=== PATIENT | male | born 1955 | race Caucasian/White ===

== ENCOUNTER 2019-04-01 13:00 | Outpatient (RCR) | payer MEDICARE, BC, SELFPAY ==
--- NOTE | 2019-03-04 12:31 | HP.PTEVAL_ITS ---
Patient's Visit Information JOSE YOUNG is a 63 year old M referred to Physical Therapy by Ken Serra MD with a diagnosis of l compete rct tear L bicep tear. Date of Evaluation: 03/04/19 Physical Therapist: Cecilio Chaparro, PT, ANGEL, SCS, CSCS - Visit Plan Frequency: 1-2x /Week Duration: 6 Weeks Plan: 1-2 week deopending on progress - Subjective Findings: I had surgery on 02.20.19 at [facility] with Dr Serra. I initially injured my arm 25 years ago but recently tripped over a sump pump and fell on my armstretched arm - Pain Left Shoulder Pain Intensity (Out of 10): 4 Pain Intensity Range: 0, 4 Comment: 0 at rest higher with activities - Objective Mr Young is a pleasant 63 yo who was referred to my care with a diagnosis of left rcr on 02.20.19 and left bicep tenodesis. incision site is healing well no seepage or drainage. This right hand individual displayed a grounding engineer strength on 85 right 70 left. Denies any numbness or tingling. PROM restricted to 15 ext ad 70 flexion. - Goals Goal 1:: Understand the healing process Goal Time Frame: 1 Week Goal 2:: Progress from phase 1 to 2 then transfer to therapist n [place] Goal Time Frame: 4-6 Weeks - Rehabilitation Potential Physical Therapy Diagnosis: Same Rehabilitation Potential: Good - Anticipated Interventions Patient/Client Instruction: Educate patient on: Condition, Plan of Care, Risk Factors For the Purpose of:: To decrease pain, To decrease swelling/inflammation, To increase ROM Manual Therapy Techniques to Include: Mobilization, Passive ROM For the Purpose of:: To decrease pain, To decrease swelling/inflammation, To increase ROM Thank you for the opportunity to evaluate your patient. For Medicare and Medicare HMO plans, please review the plan of care and approve it. It will need to be FAXED BACK to us at [phone] for Medicare purposes. For Medicare only, by signing this I certify the plan of care. Please let me know if there are questions or concerns regarding this plan of care. Physician Signature: Date:
--- NOTE | 2019-04-01 14:02 | HP.PTDCSUM ---
HP - PT D/C Summary It has been my pleasure to treat JOSE WILDER under orders from Ken Serra MD, for the diagnosis of l compete rct tear L bicep tear for a total of 7 visit(s). Discharge Date: 04/01/19 Please see the following information for a summary of their discharge status. - Subjective Subjective: I'm all set to to drive to [facility]. I have my therapist in [facility]. - Pain Left Shoulder Pain Intensity (Out of 10): 2 - Objective Objective/Function: shd [id number]. shd abd 135. ext rot 58. int rot R T4 L T10 - Goals Goal 1:: Understand the healing process Goal Progress: Goal Met Goal 2:: Progress from phase 1 to 2 then transfer to therapist n [place] Goal Progress: Progressing - Plan Plan: discharge - D/C Information Discharge Comments: Joel is heading to [place] tomorrow I have instructed in a phase 2 program and given him a rotator cuff protocol. If he has any issues his therapist can call me. At this point he is doing great feels about 60% better, little pain and ROM is improving weekly. If there are questions or concerns regarding this patient's physical therapy, please feel free to call me at [phone]. Thank you for the referral of this patient. Sincerely, Cecilio Chaparro, PT, ANGEL, SCS, CSCS
== END 2019-04-01 19:00 | disposition home or self-care (01) ==
LOC: PT 13:00
PROVIDERS: Family Provider Family Medicine; PCP Family Medicine; Referring Provider Orthopaedic Surgery; Visit Provider Orthopaedic Surgery
DX: S42.212D Unspecified displaced fracture of surgical neck of left humerus, subsequent encounter for fracture with routine healing (principal); S46.012D Strain of muscle(s) and tendon(s) of the rotator cuff of left shoulder, subsequent encounter
CPT/HCPCS: 97014; 97140; 97161; G0283

== ENCOUNTER 2020-09-15 20:28 | Emergency (ER) | payer MEDICARE, BC, SELFPAY ==
[2020-09-15 20:29] VITALS: BP 151/73; PULSE 62; RESP 15; TEMP 36.8; O2SAT 98; BMI 24.2
--- NOTE | 2020-09-15 21:01 | EKG12_ITS ---
Test Reason : ANXIETY Blood Pressure : / mmHG Vent. Rate : 061 BPM Atrial Rate : 061 BPM P-R Int : 170 ms QRS Dur : 074 ms QT Int : 412 ms P-R-T Axes : 055 014 003 degrees QTc Int : 414 ms Normal sinus rhythm Normal ECG Confirmed by KASHIF BAIN, AYANNA ([id number]), research editor DUNG JACQUES ([id number]) on 09/19/2020 9:52:05 AM Referred By: BB Confirmed By:AYANNA ROWLAND MD
--- NOTE | 2020-09-15 21:02 | EX.ED.DYSGE1 ---
HPI History of Present Illness Chief Complaint: Anxiety Informant: patient and spouse/S.O. Onset/Context/Timing Onset: Days (3) Context: Gradual Onset Timing: Intermittent Quality: feeling hyped up from inside Location: all over Current Severity: Mild Maximum Severity: Moderate Worsened by: nothing in particular Relieved by: nothing in particular Associated Symptoms Associated Symptoms: no other physical sx Narrative Narrative: Patient states he is feeling anxious and hyped up. Usually does not feel like this although he has had this happen remotely in the past. This started 3 days ago. He does not have any mental health issues or anxiety problems. He takes blood pressure medications that he has been compliant with. He denies any lightheadedness, chest pain, shortness of breath, shakiness, or any other physical symptoms. He has been dealing with a bone spur and possibly plantar fasciitis in one of his feet, about a week ago he had an injection in it by wire communications engineer, the injection contained bupivacaine, triamcinolone, and dexamethasone. No other medication changes. He is not a diabetic. [facility] Medical History (Updated 09/15/20 @ 22:[address] Akil Perez MD) Hypertension Home Medications amlodipine [Norvasc] 5 mg PO DAILY 09/15/20 [History Last Taken Unknown] atenolol 100 mg PO DAILY 09/15/20 [History Last Taken Unknown] hydroxyzine pamoate [Vistaril] 25 mg PO TID PRN #20 cap 09/15/20 [Rx Last Taken Unknown] lisinopril-hydrochlorothiazide 1 tab PO DAILY 09/15/20 [History Last Taken Unknown] Allergy/AdvReac Type Severity Reaction Status Date / Time No Known Allergies Allergy Verified 09/15/20 20:29 Social History Smoking Status: Never smoker [facility] ED Constitutional Constitutional ED: Denies chills or fever(s) Eyes Eyes: Denies change in vision or diplopia ENT ENT ED: Denies rhinorrhea or sore throat Cardiovascular Cardiovascular: Denies chest pain or palpitations Respiratory/Chest Respiratory/Chest: Denies cough or dyspnea Gastrointestinal Gastrointestinal: Denies abdominal pain, diarrhea, nausea or vomiting Genitourinary Genitourinary ED: Denies dysuria or hematuria Musculoskeletal Musculoskeletal: Denies back pain or neck pain Integumentary Denies abscess or rash Neurologic Neurologic: Denies headache(s), paresthesias or weakness Psychiatric Psychiatric: Reports as per HPI and anxiety; Denies suicidal thoughts EXAM Physical Exam Const Vital Signs: 09/15/20 20:29 Temperature 98.2 F Temperature Source Temporal Pulse Rate 62 Respiratory Rate 15 Blood Pressure 151/73 H Blood Pressure Mean 99 Pulse Ox 98 Oxygen Delivery Method Room Air Positive well nourished and well developed General Appearance ED: well developed and NAD HEENT Reports moist mucous membranes normocephalic and atraumatic Eyes PERRL and EOMs intact bilaterally Neck full ROM and supple Resp normal respiratory effort and clear to auscultation bilaterally Cardio regular rate, regular rhythm and no murmurs Rate: Negative for tachycardic GI non-tender and non-distended Auscultation: normoactive bowel sounds Palpation: soft Back/Spine no CVA tenderness General Back: other FROM Extremity normal to inspection General Extremety ED: Negative for edema, pulses abnormal or tenderness General Extremity: Negative for edema or pulses abnormal Neuro oriented x3, CN's II-XII intact bilaterally and no sensory deficits noted Sensorium / Orientation: awake and alert Motor Exam: strength 5/5 throughout Skin no rashes or lesions noted and no wounds MDM MDM MDM Narrative Medical decision making narrative: Patient was given Vistaril while metabolic testing/screening was obtained including EKG and troponin which were normal. The rest of his work-up is unremarkable. Vistaril helped him significantly. He is reassured, I suspect this may be some mild systemic side effect as a result of the injected steroids into his foot, they should go away with time, he may use the Vistaril as needed and advised to discuss with his wire communications engineer in the morning. Lab Data Attestation: I reviewed the patient's lab results. Labs: Laboratory Results - last 24 hr 09/15/20 09/15/20 21:20 21:20 WBC 11.9 H RBC 4.78 Hgb 14.3 Hct 43.3 MCV 90.6 MCH 29.9 MCHC 33.0 RDW Std Deviation 41.1 RDW Coeff of Va 12.5 Plt Count 251 MPV 10.5 Immature Gran % (Auto) 0.700 Neut % (Auto) 58.9 Lymph % (Auto) 30.6 [place] % (Auto) 8.2 Eos % (Auto) 1.3 Baso % (Auto) 0.3 Absolute Neuts (auto) 7.0 Absolute Lymphs (auto) 3.65 Nucleated RBC % 0 Sodium 139 Potassium 4.0 Chloride 102 Carbon Dioxide 30.0 Anion Gap 7 BUN 22 H Creatinine 1.06 Estim Creat Clear Calc 68.55 Est GFR (MDRD) Af Amer 90 Est GFR (MDRD) Non-Af 74 BUN/Creatinine Ratio 20.8 H Glucose 105 Calcium 9.4 Troponin I < 0.015 EKG Initial EKG: Attestation: I personally reviewed and interpreted this EKG as follows: Interpretation: Sinus Rhythm and No Acute Injury Pattern Comments: Normal EKG, rate 61 no ectopy Discharge Plan Triage Chief Complaint: Anxiety ED Provider: Akil Perez Dx/Rx/DC Orders Clinical Impression: Anxiety Instructions: ED Anxiety Reaction Prescriptions: New hydroxyzine pamoate [Vistaril] 25 mg capsule 25 mg PO TID PRN (Reason: anxiety) Qty: 20 RF: 0 No Action atenolol 100 mg Tablet 100 mg PO DAILY RF: 0 amlodipine [Norvasc] 5 mg Tablet 5 mg PO DAILY RF: 0 lisinopril-hydrochlorothiazide 20-25 mg Tablet 1 tab PO DAILY RF: 0 Primary Care Provider: Jacek Ahmadi Referrals: Jacek Ahmadi MD [Primary Care Provider] - Disposition Disposition: Home, self care
[2020-09-15] MEDS: hydrOXYzine PAM 25 MG Capsule 50 MG PO (21:14)
[2020-09-15 21:29] LABS: Absolute Lymphocyte Count 3.65 X10^3/uL (0.83-4.51); Basophil# 0.04 X10^3/uL; Basophil% 0.3 % (0-1); Eosinophil# 0.16 X10^3/uL; Eosinophils% 1.3 % (0-5); Hematocrit 43.3 % (40-54); Hemoglobin 14.3 g/dL (13.0-16.5); Lymphocyte # 3.65 X10^3/ul (0.83-4.51); Lymphocyte % 30.6 % (19-41); Mean Corpuscular Hgb 29.9 pg (27.0-32.0); Mean Corpuscular Volume 90.6 fL (80-94); Mean Platelet Vol. 10.5 fl (6.2-12.0); Monocyte# 0.98 X10^3/uL; Monocyte% 8.2 % (0-10); NRBC Flagged by Analyzer 0 % (0-5); Neutrophil # 7.01 X10^3/uL (2.7-7.7); Neutrophil % 58.9 % (47-70); Platelet Count 251 K/mm3 (150-450); RBC Distribution Width CV 12.5 % (11.6-14.6); RBC Distribution Width SD 41.1 fl (35.1-43.9); Red Blood Count 4.78 M/mm3 (4.6-6.2); White Blood Count 11.9 K/mm3 (4.4-11.0)
[2020-09-15 21:47] LABS: Anion Gap 7 (5-15); BUN 22 mg/dL (7-18); BUN/Creat Ratio 20.8 RATIO (10-20); Calcium,Total 9.4 mg/dL (8.5-10.1); Chloride 102 mmol/L (98-107); Creatinine, Serum 1.06 mg/dL (0.70-1.30); EST Glomerular Filtration Rate 74 mL/min (>60); Est Glom Filt Rate - Afr Amer 90 mL/min (>60); Estimated Creatinine Clearance 68.55 ml/min; Glucose 105 mg/dL (74-106); Sodium Level 139 mmol/L (136-145)
[2020-09-15 22:16] VITALS: BP 146/60; PULSE 72; RESP 16; O2SAT 97
== END 2020-09-15 22:17 | disposition home or self-care (01) ==
PROVIDERS: Emergency Provider Emergency Medicine; PCP Family Medicine
DX: F41.9 Anxiety disorder, unspecified (principal); I10 Essential (primary) hypertension; Z79.899 Other long term (current) drug therapy
CPT/HCPCS: 36415; 80048; 84484; 85025; 93005; 99283

== ENCOUNTER 2021-12-21 21:17 | Emergency (ER) | payer MEDICARE, BC, SELFPAY ==
[2021-12-21 21:19] VITALS: BP 141/88; PULSE 65; RESP 16; TEMP 36.6; O2SAT 99; BMI 23.9
--- NOTE | 2021-12-21 21:45 | EKG12_ITS ---
Test Reason : HYPERTENSEN Blood Pressure : / mmHG Vent. Rate : 063 BPM Atrial Rate : 063 BPM P-R Int : 190 ms QRS Dur : 084 ms QT Int : 426 ms P-R-T Axes : 058 013 003 degrees QTc Int : 435 ms Normal sinus rhythm Normal ECG Confirmed by NETTA BAIN, MAHNAZ ([id number]), mapping editor DUNG JACQUES ([id number]) on 12/25/2021 10:48:46 AM Referred By: MARK Confirmed By:MAHNAZ CHADWICK MD
--- NOTE | 2021-12-21 21:46 | EX.ED.DYSGE1 ---
HPI History of Present Illness Chief Complaint: Hypertension Detail of Chief Complaint: High blood pressure Informant: patient Narrative Narrative: Patient presents to the emergency department complaint of elevated blood pressure tonight. Patient states that he had walked up the stairs to go upstairs and check his blood pressure and noted that it was 167/88 and he felt like he needed to be seen. Patient states that he thinks there may be some component of anxiety because he feels like 1 would feel when a car just missed them and going 100 miles an hour. Patient denies chest pain or shortness of breath. He denies headache. He denies recent illness. Patient has been compliant with his blood pressure medication. [facility] Medical History (Updated 12/21/21 @ 22:[address] Joleen Hammond, ) Hypertension Home Medications amlodipine 5 mg tablet (Norvasc) 5 mg PO DAILY 09/15/20 [History Last Taken Unknown] atenolol 100 mg tablet 100 mg PO DAILY 09/15/20 [History Last Taken Unknown] hydroxyzine pamoate 25 mg capsule (Vistaril) 25 mg PO TID PRN anxiety #20 caps 09/15/20 [Rx Last Taken Unknown] lisinopril 20 mg-hydrochlorothiazide 25 mg tablet 1 tab PO DAILY 09/15/20 [History Last Taken Unknown] lorazepam 0.5 mg tablet (Ativan) 0.5 mg PO TID PRN anxiety #10 tabs 12/21/21 [Rx Last Taken Unknown] Allergy/AdvReac Type Severity Reaction Status Date / Time No Known Allergies Allergy Verified 12/21/21 21:21 Social History Smoking Status: Never smoker ROS ROS ED Review of Systems ROS Unobtainable: other Constitutional Constitutional ED: Reports lethargy; Denies chills, fever(s), sweats or weight loss Eyes Eyes: Denies blurry vision, change in vision or diplopia ENT ENT ED: Denies rhinorrhea or sore throat Cardiovascular Cardiovascular: Denies chest pain, orthopnea or racing heartbeat Respiratory/Chest Respiratory/Chest: Denies cough, dyspnea, dyspnea on exertion, orthopnea or sputum Gastrointestinal Gastrointestinal: Denies abdominal pain, diarrhea, nausea or vomiting Genitourinary Genitourinary ED: Denies dysuria, hematuria or urinary frequency Musculoskeletal Musculoskeletal: Denies arthralgias, back pain, myalgias or neck pain Integumentary Denies abscess, Abrasions or rash Neurologic Neurologic: Denies headache(s) or weakness Psychiatric Psychiatric: Denies anxiety, depression or suicidal thoughts Endocrine Endocrinology: Denies polydipsia, polyphagia or polyuria Hematologic/Lymphatic Hematologic/Lymphatic: Denies easy bleeding, easy bruising or lymphadenopathy Allergic/Immunologic Allergic/Immunologic ED: Denies mouth swelling, tongue swelling or urticaria EXAM Physical Exam Const Vital Signs: 12/21/21 21:19 12/21/21 21:24 Temperature 97.9 F Temperature Source Temporal Pulse Rate 65 Respiratory Rate 16 Respiratory Effort Normal Respiratory Pattern Normal Blood Pressure 141/88 H Blood Pressure Mean 105 Pulse Ox 99 Oxygen Delivery Method Room Air Positive well nourished and well developed General Appearance ED: well developed and NAD HEENT Reports TM's clear and moist mucous membranes normocephalic and atraumatic; Negative for trauma or tenderness Tympanic Membrane ED: Yes TM's clear Eyes PERRL and EOMs intact bilaterally General Eye ED: Negative for pale conjunctiva or scleral icterus Neck no lymphadenopathy, supple and no JVD General: Negative for tenderness Chest Wall inspection of chest normal and palpation of chest normal Chest: Negative for tenderness Resp normal respiratory effort and clear to auscultation bilaterally Effort and Inspection: Negative for respiratory distress or pain with movement Auscultation: Negative for rhonchi, wheezes or diminished lung sounds Cardio regular rate, regular rhythm, S1 normal heart sound, S2 normal heart sound and no murmurs Peripheral Pulses: pulses 2+ throughout GI normal to inspection, nondistended, normoactive bowel sounds, soft to palpation, non-tender, non-distended and no masses Back/Spine no CVA tenderness and no thoracic nor lumbar tenderness Extremity normal to inspection General Extremety ED: Negative for edema General Extremity: Negative for edema Neuro oriented x3, CN's II-XII intact bilaterally, no sensory deficits noted and gait normal Sensorium / Orientation: awake, alert, oriented to person, oriented to place and oriented to time Motor Exam: strength 5/5 throughout and strength abnormal Psych mental status grossly normal Skin no rashes or lesions noted and no wounds MDM MDM MDM Narrative Medical decision making narrative: The line established and patient placed on a satellite project site monitor. Lab work-up was unremarkable. EKG showed a sinus rhythm with no acute ST segment changes. Patient received Ativan 1 mg IV and felt improved. At this point I suspect a component of anxiety. I will feel any further changes medication is warranted at this time for his blood pressure. Recommended he keep a daily journal of his blood pressures and follow-up with his primary care physician. Patient will be given a prescription for as needed Ativan also. Lab Data Attestation: I reviewed the patient's lab results. Labs: Laboratory Results - last 24 hr 12/21/21 12/21/21 22:04 22:04 WBC 10.1 RBC 4.68 Hgb 14.4 Hct 42.2 MCV 90.2 MCH 30.8 MCHC 34.1 RDW Std Deviation 41.1 RDW Coeff of Va 12.5 Plt Count 312 MPV 10.2 Immature Gran % (Auto) 0.300 Neut % (Auto) 54.8 Lymph % (Auto) 35.0 [place] % (Auto) 7.4 Eos % (Auto) 2.0 Baso % (Auto) 0.5 Absolute Neuts (auto) 5.6 Absolute Lymphs (auto) 3.54 Nucleated RBC % 0 Sodium 141 Potassium 3.9 Chloride 104 Carbon Dioxide 30.0 Anion Gap 7 BUN 18 Creatinine 0.92 Estim Creat Clear Calc 76.85 Est GFR (MDRD) Af Amer 105 Est GFR (MDRD) Non-Af 87 BUN/Creatinine Ratio 19.5 Glucose 112 H Calcium 9.5 Troponin I High Sens 6 EKG Initial EKG: Comments: Sinus rhythm with a rate of 63 bpm with no acute ST segment changes Discharge Plan Triage Chief Complaint: Hypertension ED Provider: Joleen Hammond Dx/Rx/DC Orders Clinical Impression: Anxiety, Hypertension Instructions: ED Anxiety Reaction, ED Hypertension, Established Prescriptions: New lorazepam [Ativan] 0.5 mg tablet 0.5 mg PO TID PRN (Reason: anxiety) Qty: 10 0RF No Action atenolol 100 mg Tablet 100 mg PO DAILY amlodipine [Norvasc] 5 mg Tablet 5 mg PO DAILY lisinopril-hydrochlorothiazide 20-25 mg Tablet 1 tab PO DAILY hydroxyzine pamoate [Vistaril] 25 mg capsule 25 mg PO TID PRN (Reason: anxiety) Qty: 20 0RF Primary Care Provider: Jacek Ahmadi Referrals: Jacek Ahmadi MD [Primary Care Provider] - 3-5 Days Disposition Disposition: Home, Self Care
[2021-12-21] MEDS: LORazepam 2 MG/ML Syringe 1 MG IV (22:02)
[2021-12-21 22:14] LABS: Absolute Lymphocyte Count 3.54 X10^3/uL (0.83-4.51); Absolute Neutrophil Count 5.6 X10^3/uL (2.0-7.7); Basophil# 0.05 X10^3/uL; Basophil% 0.5 % (0-1); Hematocrit 42.2 % (40-54); Hemoglobin 14.4 g/dL (13.0-16.5); Lymphocyte # 3.54 X10^3/ul (0.83-4.51); Mean Corp Hgb Conc 34.1 g/dL (32-36); Mean Corpuscular Hgb 30.8 pg (27.0-32.0); Mean Corpuscular Volume 90.2 fL (80-94); Mean Platelet Vol. 10.2 fl (6.2-12.0); Monocyte# 0.75 X10^3/uL; Monocyte% 7.4 % (0-10); NRBC Flagged by Analyzer 0 % (0-5); Neutrophil # 5.55 X10^3/uL (2.7-7.7); Neutrophil % 54.8 % (47-70); Platelet Count 312 K/mm3 (150-450); RBC Distribution Width CV 12.5 % (11.6-14.6); RBC Distribution Width SD 41.1 fl (35.1-43.9); Red Blood Count 4.68 M/mm3 (4.6-6.2); White Blood Count 10.1 K/mm3 (4.4-11.0)
[2021-12-21 22:36] LABS: Anion Gap 7 (5-15); BUN 18 mg/dL (7-18); BUN/Creat Ratio 19.5 RATIO (10-20); Calcium,Total 9.5 mg/dL (8.5-10.1); Chloride 104 mmol/L (98-107); Creatinine, Serum 0.92 mg/dL (0.70-1.30); EST Glomerular Filtration Rate 87 mL/min (>60); Est Glom Filt Rate - Afr Amer 105 mL/min (>60); Estimated Creatinine Clearance 76.85 ml/min; Glucose 112 mg/dL (74-106); Potassium 3.9 mmol/L (3.5-5.1); Sodium Level 141 mmol/L (136-145); Troponin-I HS 6 pg/mL (3.0-78.0)
[2021-12-21 23:00] VITALS: BP 127/78; PULSE 61; RESP 12; O2SAT 97
== END 2021-12-21 23:07 | disposition home or self-care (01) ==
PROVIDERS: Emergency Provider Emergency Medicine; PCP Family Medicine; Visit Provider Emergency Medicine
DX: I10 Essential (primary) hypertension (principal); F41.9 Anxiety disorder, unspecified
CPT/HCPCS: 80048; 84484; 85025; 93005; 96374; 99285